=== PATIENT | male | born 1940 ===

== ENCOUNTER → 2018-10-13 21:09 | Outpatient (ROUT) | payer MEDICARE, SELFPAY ==
[2018-10-14 00:21] LABS: INR 3.2 (0.9-1.3); Prothrombin Time 37.4 SECONDS (10.1-12.7)
[2018-10-14 00:44] LABS: Albumin 3.8 g/dL (3.5-5.0); BUN Creatinine Ratio 5.7 (6-22); Blood Urea Nitrogen 28 mg/dL (9-20); Calcium 9.2 mg/dL (8.4-10.2); Carbon Dioxide 32 mmol/L (22-32); Chloride 97 mmol/L (98-107); Estimated Glomerular Filt Rate 11.6 mL/min (>60); Glucose 121 mg/dL (80-110); HEMOLYSIS < 15 (0-50); Phosphorous 4.8 mg/dL (2.3-3.7); Potassium 5.1 mmol/L (3.4-5.1); Sodium 138 mmol/L (137-145)
== END ==
PROVIDERS: Visit Provider Family Medicine
DX: N18.9 Chronic kidney disease, unspecified (principal); Z86.711 Personal history of pulmonary embolism; Z79.890 Hormone replacement therapy
CPT/HCPCS: 36415; 80069; 85610